=== PATIENT | female | born 1955 ===

== ENCOUNTER → 2018-03-25 13:12 | Outpatient (REF) | payer OTHER, SELFPAY ==
[2018-03-25 14:17] LABS: Ferritin 26.4 ng/mL (11.1-264)
[2018-03-26 15:35] LABS: Progesterone 5.4 ng/mL
[2018-03-26 19:33] LABS: Sex Hormone Binding Globulin 97 nmol/L (14-73)
[2018-03-27 15:38] LABS: Dehydroepiandrosterone Sulfate 99 mcg/dL (12-133); Estradiol 36 pg/mL
[2018-03-29 00:54] LABS: Testosterone Free 1.9 pg/mL (0.1-6.4); Testosterone Total 34 ng/dL (2-45)
== END ==
LOC: LAB 13:12
PROVIDERS: Visit Provider Naturopath
DX: N95.1 Menopausal and female climacteric states (principal); D50.9 Iron deficiency anemia, unspecified
CPT/HCPCS: 36415; 82627; 82670; 82728; 84144; 84270; 84402; 84403